=== PATIENT | male | born 1960 | race Two or more races ===

== ENCOUNTER 2024-07-01 10:43 | Emergency (ER) | payer OTHER ==
[~2024-07-01] VITALS: Ht 182.9 cm; Wt 90.9 kg
[2024-07-01 10:50] VITALS: TEMP 98.9
[2024-07-01] MEDS ORDERED: METH5SOL20 PO (10:55)
[2024-07-01] MEDS ORDERED: htn med PO (10:55)
[2024-07-01] MEDS: KETOROLAC TROMETHAMINE 30 MG/ML VIAL IVP ONE (11:13)
[2024-07-01] MEDS: SODIUM CHLORIDE 0.9% 1,000 ML IV ONE (11:13)
[2024-07-01] MEDS: ONDANSETRON HCL 4 MG/2 ML VIAL IVP ONE (11:13)
[2024-07-01] MEDS ORDERED: SODIUM CHLORIDE 0.9% 100 ML ONE (11:13)
[2024-07-01] MEDS: FAMOTIDINE 20 MG/2 ML VIAL IVP ONE (11:13)
[2024-07-01] MEDS: MAG HYDROX/ALUMINUM HYD/SIMETH 30 ML SUSPENSION UDCUP PO ONE (11:13)
[2024-07-01] MEDS ORDERED: IOHEXOL 350 MG/ML 100 ML VIAL ONE (11:13)
[2024-07-01 11:22] LABS: BASOPHILS % (AUTO) 0.2 % (0.0-2.0); EOSINOPHILS % (AUTO) 0.5 % (1.0-6.0); HEMATOCRIT 42.9 % (41-53); HEMOGLOBIN 14.6 g/dL (13.5-17.5); LYMPHOCYTES # (AUTO) 0.2 K/uL (1.0-4.8); LYMPHOCYTES % (AUTO) 2.5 % (22.0-44.0); MEAN CORPUSCULAR VOLUME 91 fL (80-100); MONOCYTES # (AUTO) 0.4 K/uL (0.1-1.0); MONOCYTES % (AUTO) 4.5 % (2.0-9.0); NEUTROPHILS # (AUTO) 7.7 K/uL (1.8-7.7); PLATELET COUNT (AUTO) 156 K/uL (150-450); RED BLOOD CELL COUNT(AUTO) 4.71 MIL/uL (4.50-5.90); RED CELL DISTRIBUTION WIDTH 14.1 % (11.5-14.5); WHITE BLOOD COUNT (AUTO) 8.3 K/uL (4.5-11.0)
[2024-07-01 11:24] LABS: NEUTROPHILS % (AUTO) 92.3 % (40.0-70.0)
[2024-07-01 11:25] LABS: RBC MORPHOLOGY COMMENT NORMAL RBC MORPH
[2024-07-01 11:36] LABS: ANION GAP 6 mmol/L (8-16); CALCIUM, TOTAL 9.3 mg/dL (8.8-10.5); CARBON DIOXIDE 29 mmol/L (22-29); CHLORIDE 104 mmol/L (98-107); CREATININE 1.19 mg/dL (0.60-1.30); GLOMERULAR FILTR. RATE CALC > 60 mL/min (>60); GLUCOSE,RANDOM 129 mg/dL (70-110); POTASSIUM 4.2 mmol/L (3.5-5.1); SODIUM SERUM 139 mmol/L (136-145); UREA NITROGEN, BLOOD 23 mg/dL (7-18)
[2024-07-01 11:50] LABS: ALANINE AMINOTRANSFERASE 23 U/L (12-78); ALBUMIN 3.6 g/dL (3.4-5.0); ALKALINE PHOSPHATASE 79 U/L (46-116); ASPARTATE AMINOTRANSFERASE 21 U/L (15-37); BILIRUBIN,TOTAL 0.9 mg/dL (0.1-1.0); LIPASE 15 U/L (16-77); TOTAL PROTEIN, SERUM 7.5 g/dL (6.4-8.2)
[2024-07-01 12:09] LABS: APPEARANCE,URINE CLEAR (CLEAR); BILIRUBIN,URINE NEGATIVE (NEGATIVE); COLOR,URINE YELLOW (YELLOW); GLUCOSE, URINE (UA) NEGATIVE (NEGATIVE); KETONES,URINE NEGATIVE (NEGATIVE); LEUKOCYTE ESTERASE ,URINE NEGATIVE (NEGATIVE); NITRATE,URINE NEGATIVE (NEGATIVE); OCCULT BLOOD,URINE NEGATIVE (NEGATIVE); PROTEIN,URINE TRACE mg/dL (NEGATIVE); SPECIFIC GRAVITIY, URINE 1.018 (1.003-1.030); UROBILINOGEN,URINE <=1.0 mg/dL (<=1.0)
[2024-07-01 12:48] VITALS: BP 165/91; PULSE 80; RESP 20; O2SAT 95
[2024-07-01] MEDS ORDERED: ONDA-104 PO (12:52)
== END 2024-07-01 14:11 | disposition home or self-care (01) ==
LOC: EMS 10:43
DX: K52.9 Noninfective gastroenteritis and colitis, unspecified (principal); I10 Essential (primary) hypertension
CPT/HCPCS: 99285; 74177; 96374; 96375; 96361; 80048; 80076; 81003; 83690; 85025; 36415; Q9967; J3490; J1885; J2405; J7030; J7050

== ENCOUNTER 2025-02-24 21:45 | Emergency (ER) | payer OTHER ==
[~2025-02-24] VITALS: Ht 182.9 cm; Wt 75.0 kg
[~2025-02-24 21:45] MED LIST: METH5SOL20 PO; ONDA-104 PO; htn med PO
[2025-02-24 22:20] VITALS: TEMP 98.3
[2025-02-24 22:25] VITALS: BP 131/87; PULSE 60; RESP 20; O2SAT 98
[2025-02-24] MEDS: TOBRAMYCIN/DEXAMETHASONE 5 ML OPHTHALMIC SUSPENSION OU ONE (22:47)
== END 2025-02-24 22:59 | disposition home or self-care (01) ==
LOC: EMS 21:46
DX: H10.89 Other conjunctivitis (principal); I10 Essential (primary) hypertension; F12.90 Cannabis use, unspecified, uncomplicated
CPT/HCPCS: 99283

== ENCOUNTER 2025-06-23 15:34 | Emergency (ER) | payer OTHER ==
[~2025-06-23] VITALS: Ht 182.9 cm; Wt 86.4 kg
[2025-06-23 16:23] LABS: PLATELET COUNT (AUTO) 149 K/uL (150-450); RED BLOOD CELL COUNT(AUTO) 4.81 MIL/uL (4.50-5.90); RED CELL DISTRIBUTION WIDTH 13.5 % (11.5-14.5); WHITE BLOOD COUNT (AUTO) 8.0 K/uL (4.5-11.0)
[2025-06-23 16:25] LABS: COVID AG,FIA SOURCE NASAL SWAB
[2025-06-23 16:31] LABS: CALCIUM, TOTAL 9.2 mg/dL (8.8-10.5); CREATININE 1.02 mg/dL (0.60-1.30); GLOMERULAR FILTR. RATE CALC > 60 mL/min (>60); GLUCOSE,RANDOM 145 mg/dL (70-110); SODIUM SERUM 135 mmol/L (136-145); UREA NITROGEN, BLOOD 22 mg/dL (7-18)
[2025-06-23 16:46] LABS: SARS-COV2 (COVID) ANTIGEN,FIA Negative (Negative)
[2025-06-23 16:47] LABS: INFLUENZA TYPE A NEGATIVE FOR TYPE A (NEGATIVE); INFLUENZA TYPE B NEGATIVE FOR TYPE B (NEGATIVE)
[2025-06-23 16:53] LABS: APPEARANCE,URINE CLEAR (CLEAR); GLUCOSE, URINE (UA) NEGATIVE (NEGATIVE); LEUKOCYTE ESTERASE ,URINE NEGATIVE (NEGATIVE); NITRATE,URINE NEGATIVE (NEGATIVE); OCCULT BLOOD,URINE TRACE (NEGATIVE); PH,URINE DRUG SCREEN 6.0 (5.0-8.0); SPECIFIC GRAVITIY, URINE 1.033 (1.003-1.030)
[2025-06-23 17:03] LABS: ALCOHOL, URINE DRUG SCREEN NEGATIVE (NEGATIVE); AMPHET/METH SCREEN,URINE NEGATIVE (NEGATIVE); BARBITURATE SCREEN, URINE NEGATIVE (NEGATIVE); CANNABINOID SCREEN,URINE POSITIVE (NEGATIVE); COCAINE SCREEN,URINE NEGATIVE (NEGATIVE); METHADONE SCREEN, URINE POSITIVE (NEGATIVE)
[2025-06-23] MEDS: SODIUM CHLORIDE 0.9% 1,000 ML IV ONE (17:22)
[2025-06-23] MEDS: ONDANSETRON HCL 4 MG/2 ML VIAL IVP ONE ×2 (17:22→20:13)
[2025-06-23 17:23] LABS: SQUAMOUS EPITHELIAL CELL,UR Few /LPF (None Seen); SULFOSALICYLIC ACID,URINE 1+ (Negative)
[2025-06-23 20:05] VITALS: BP 164/83; PULSE 75; RESP 16; TEMP 97.8; O2SAT 100
[2025-06-23] MEDS: METHADONE HCL 10 MG TABLET PO ONE (20:13)
[2025-06-23] MEDS: CefTRIAXone 1 GM/DEXTROSE 50 ML IV ONE (20:13)
== END 2025-06-23 21:20 | disposition admitted as inpatient to this hospital (09) ==
LOC: EMS 15:34
DX: K52.9 Noninfective gastroenteritis and colitis, unspecified (principal); J18.9 Pneumonia, unspecified organism; F12.90 Cannabis use, unspecified, uncomplicated; F14.90 Cocaine use, unspecified, uncomplicated; I10 Essential (primary) hypertension; Z86.19 Personal history of other infectious and parasitic diseases; Z79.899 Other long term (current) drug therapy; Z20.822 Contact with and (suspected) exposure to COVID-19
CPT/HCPCS: 99285; 96365; 71045; 96361; 96375; 87426; 80048; 81001; 83690; 85025; 87804; 36415; 96376; 80307; J0696; J2405; J7030; 81002